=== PATIENT | male | born 1975 | race Caucasian/White ===

== ENCOUNTER 2016-11-29 04:25 | Emergency (ER) | payer SELFPAY ==
--- NOTE | 2016-11-29 05:21 | EDPHY ---
H & P Stated Complaint: blistering and soreness to bilateral feet Time Seen by Provider: 11/29/16 04:43 HPI/ROS: HPI The patient presents, brought in by ambulance for bilateral foot pain which has been present for the last several weeks. It is worse with walking and improved with rest. It is an aching pain which has been constant. As he is homeless and is visiting here from [place]. He has been doing a lot of walking. He has not had a fever, any numbness of his feet, any swelling of his feet. REVIEW OF SYSTEMS Constitutional: No fever, no chills. Eyes: No discharge. ENT: No sore throat. Cardiovascular: No chest pain, no palpitations. Respiratory: No cough, no shortness of breath. Gastrointestinal: No abdominal pain, no vomiting. Genitourinary: No hematuria. Musculoskeletal: No back pain. Skin: No rashes. Neurological: No headache. PMHx: Denies diabetes or hypertension Soc Hx: Homeless PHYSICAL General Appearance: Alert, no distress Eyes: Pupils equal and round no pallor or injection ENT, Mouth: Mucous membranes moist Respiratory: There are no retractions, lungs are clear to auscultation Cardiovascular: Regular rate and rhythm Gastrointestinal: Abdomen is soft and non-tender, no masses, bowel sounds normal Neurological: A&O, moves all extremities Skin: Warm and dry, no rashes Musculoskeletal: Neck is supple non tender Extremities: Both feet with multiple bullae, slightly erythematous, no necrosis or gangrene, no edema Psychiatric: Patient is oriented X 3, there is no agitation Source: Patient, EMS Exam Limitations: No limitations - Personal History Current Tetanus/Diphtheria Vaccine: No Current Tetanus Diphtheria and Acellular Pertussis (TDAP): No - Medical/Surgical History Hx Asthma: No Hx Chronic Respiratory Disease: No Hx Diabetes: No Hx Cardiac Disease: No Hx Renal Disease: No Hx Cirrhosis: No Hx Alcoholism: No Hx HIV/AIDS: No Hx Splenectomy or Spleen Trauma: No Other PMH: none - Social History Smoking Status: Heavy smoker Constitutional: Initial Vital Signs Temperature (C) 36.4 C 11/29/16 04:37 Heart Rate 99 11/29/16 04:37 Respiratory Rate 14 11/29/16 04:37 Blood Pressure 145/80 H 11/29/16 04:37 O2 Sat (%) 99 01/27/17 04:37 O2 Delivery Mode Room Air Medical Decision Making Differential Diagnosis: This is a 41-year-old homeless man with no significant past medical history who presents with several weeks of bilateral foot pain of associated with erythema and bullae. This appears to be trench foot without any evidence of gangrene on exam. I have also considered cellulitis, however he does not have any fever, warmth, edema to the area. There is no obvious abscess. Frostbite is also a consideration. I have discussed with him good hygiene of his feet, keeping them warm and dry, staying in the nursing home as much as possible. He is in agreement with this and will be discharged. Departure - Departure Disposition: Home, Routine, Self-Care Clinical Impression: Trench feet Condition: Good Instructions: Blister (ED) Additional Instructions: Please do your best to keep your feet clean and dry. This will help the blistering. Referrals: [facility] [Outside] - As per Instructions
[2016-11-29 05:35] VITALS: BP 138/70; PULSE 89; RESP 16; TEMP 97.7; O2SAT 98
== END 2016-11-29 05:35 | disposition home or self-care (01) ==
DX: T69.021A Immersion foot, right foot, initial encounter (principal); T69.022A Immersion foot, left foot, initial encounter; F17.200 Nicotine dependence, unspecified, uncomplicated; X31.XXXA Exposure to excessive natural cold, initial encounter

== ENCOUNTER 2017-11-14 13:46 | Emergency (ER) | payer SELFPAY ==
[2017-11-14 13:56] VITALS: BP 147/85; PULSE 108; RESP 15; TEMP 98.2; O2SAT 95
--- NOTE | 2017-11-14 14:03 | EDPHY ---
H & P Time Seen by Provider: 11/14/17 13:48 HPI/ROS: CHIEF COMPLAINT: "My head felt hot " HISTORY OF PRESENT ILLNESS: 42-year-old homeless male arrives via ambulance. States that he waved down an ambulance after he was walking and felt his head feel hot, not described her as a headache or experiencing any pain, no neurologic deficits, no vertigo, no tinnitus, no nausea or vomiting, seizure no loss of consciousness.. He then states that he felt the zippers on his clothing feeling hot and he therefore removed his clothing that contained zippers as now feels improvement. At no point has he experienced gait instability, headache, visual disturbance, suicidal or homicidal ideation, abdominal pain, nausea, vomiting. Denies illicit or alcohol use. Patient has previously been prescribed Abilify for "defiant disorder" however has been off this for several years. REVIEW OF SYSTEMS: A ten point review of systems was performed and is negative with the exception of the items mentioned in the HPI PAST MEDICAL & SURGICAL HISTORY: Self-reported history of "defiant disorder" SOCIAL HISTORY:Daily cigarette smoker. Homeless. PHYSICAL EXAM (Prior to examination, patient consented to physical exam, hands were washed and my usual and customary physical exam procedures followed) 1) GENERAL: Well-developed, well-nourished, alert and oriented. Appears to be in no acute distress. A and O x4 2) HEAD: Normocephalic, atraumatic 3) HEENT: Pupils equal, round, reactive to light bilaterally. Sclera anicteric. Nasopharynx, oropharynx, clear, no lesions. 4) NECK: Full range of motion, no meningeal signs. 5) LUNGS: Clear auscultation bilaterally, no wheezes, no rhonchi, no retractions. 6) HEART: Regular rate and rhythm, no murmur, no heave, no gallop. 7) ABDOMEN: No guarding, no rebound, no focal tenderness, negative McBurney's, negative Zhou's, negative Rovsing's, negative peritoneal sign, 8) MUSCULOSKELETAL: Moving all extremities, no focal areas of tenderness, no obvious trauma. No peripheral edema or discoloration. 9) BACK: No CVA tenderness, no midline vertebral tenderness, no fluctuance, no step-off, no obvious trauma, no visual or palpable abnormality. 10) SKIN: No rash, no petechiae. 11) Psychiatric: Patient is oriented X 3, there is no agitation. Calm and cooperative 12) NEURO: Awake, alert, and oriented to person, place and time. Answers questions appropriately. There were no obvious focal neurologic abnormalities. No cerebellar dysfunction. Cranial nerves 2 through to 12 intact. Normal steady gait. Upper and lower extremities bilaterally with strength 5 / 5, reflexes 2+. DIFFERENTIAL DIAGNOSIS: No particular include but limited to CVA, psychosis, subarachnoid hemorrhage, polysubstance abuse Smoking Status: Heavy smoker Constitutional: Initial Vital Signs Temperature (C) 36.8 C 11/14/17 13:54 Heart Rate 108 H 11/14/17 13:54 Respiratory Rate 15 11/14/17 13:54 Blood Pressure 147/85 H 11/14/17 13:54 O2 Sat (%) 95 11/14/17 13:54 O2 Delivery Mode Room Air MDM/Departure - [facility] ED Course/Re-evaluation: 2:07 p.m.: The patient has been re-evaluated with serial examinations. He describes nebulous symptoms which I think are less than likely consistent with acute intracranial or neurologic pathology such as subarachnoid hemorrhage, CVA. In addition he has no complaints either currently or previously of headache, neurologic deficits. He has a normal neurologic examination on exam. He is currently not taking any medications, denies suicidal homicidal ideation , exhibits no evidence of altered mentation, alert oriented person place time events. I believe him to have decision-making capacity at this time. I do not think he meets criteria for an M1 hold. I have offered to send him to mental health systems programmer is a as he has a prior history of mental health issues, has been off of medication for several years however he declines this. States that he would like to leave. He is welcome to return to emergency department for re- evaluation. Care of patient under supervision of secondary supervising physician Dr Joseph . - Depart Disposition: Home, Routine, Self-Care Clinical Impression: Sensation of feeling hot Condition: Good Instructions: [facility] Additional Instructions: Call 911 if you develop return of your symptoms, new symptoms, if you develop pain, if you develop headache or any other symptoms that concern you. Referrals: [facility],. [Primary Care Provider] - 1-2 days without fail [facility],. [Clinic] - As per Instructions
== END 2017-11-14 14:37 | disposition home or self-care (01) ==
LOC: EDUNIT#
DX: R20.8 Other disturbances of skin sensation (principal); F17.210 Nicotine dependence, cigarettes, uncomplicated

== ENCOUNTER 2017-11-14 19:00 | Emergency (ER) | payer OTHER ==
--- NOTE | 2017-11-14 19:13 | EDPHY ---
H & P Stated Complaint: "HEAD FEELS HOT WHEN TOUCHING ITEM" Source: Patient Exam Limitations: No limitations - Personal History Current Tetanus Diphtheria and Acellular Pertussis (TDAP): Unsure - Medical/Surgical History Hx Asthma: No Hx Chronic Respiratory Disease: No Hx Diabetes: No Hx Cardiac Disease: No Hx Renal Disease: No Hx Cirrhosis: No Hx Alcoholism: No Hx HIV/AIDS: No Hx Splenectomy or Spleen Trauma: No Other PMH: none - Social History Smoking Status: Heavy smoker Time Seen by Provider: 11/14/17 19:13 HPI/ROS: CHIEF COMPLAINT: Sensation that his head feels really hot HISTORY OF PRESENT ILLNESS: The patient presents the ED for 2nd time today with a sensation that his head feels hot. The patient was felt to have no significant localizing symptoms or fever during his initial ED evaluation. He was reassured and discharged home. The patient tells me he does carry a diagnosis of delusional disorder. He had previously been on Abilify for this condition. The patient denies any drug or alcohol use. The patient is quite preoccupied with the fact every time he touches metal his head becomes unbearably hot. The patient denies any chest pain shortness of breath. The patient reports he recently moved to [place] from [facility]. He is currently homeless. The patient did report a recent inpatient psychiatric hospitalization. He has a history of multiple somatic complaints as a reported component of his delusional disorder. REVIEW OF SYSTEMS: A comprehensive 10 point review of systems is otherwise negative aside from elements mentioned in the history of present illness. (Tripp Gayle) - Physical Exam Exam: General Appearance: Alert, no distress Eyes: Pupils equal and round no pallor or injection ENT, Mouth: Mucous membranes moist Respiratory: There are no retractions, lungs are clear to auscultation Cardiovascular: Regular rate and rhythm Gastrointestinal: Abdomen is soft and nontender, no masses, bowel sounds normal Neurological: A&O, normal motor function, normal sensory exam, normal cranial nerves Skin: Warm and dry, no rashes Musculoskeletal: Neck is supple nontender Extremities: symmetrical, full range of motion Psychiatric: Patient is delusional, denies suicidal or homicidal ideation, slightly agitated and anxious (Tripp Gayle) Constitutional: Initial Vital Signs Temperature (C) 36.4 C 11/14/17 19:07 Heart Rate 103 H 11/14/17 19:07 Respiratory Rate 18 11/14/17 19:07 Blood Pressure 128/103 H 11/14/17 19:07 O2 Sat (%) 94 11/14/17 19:07 O2 Delivery Mode Room Air Allergies/Adverse Reactions: No Known Allergies Allergy (Unverified 11/14/17 20:36) Medical Decision Making ED Course/Re-evaluation: The patient presents the ED with delusional thoughts. The patient does have a history of delusional disorder and is currently off psychiatric medications. The patient was amenable to 1 mg of IV Ativan. He is new to the [facility] and has not established any psychiatric care. The patient denies any acute medical complaints. He is noted to be neurologically intact without evidence of a toxidrome or vital sign abnormality. Patient has been medically cleared for psychiatric evaluation. The patient will be turned over to Dr. Jordan at shift change pending psychiatric disposition. (Tripp Gayle) 1:50 a.m.- The patient was assessed by the mental health worker. He does have fixed delusions. However, he does not have grave disability at this time, does not have any SI or HI. He does not meet criteria for psychiatric admission. The mental health worker Stuart discussed the case with Dr. Mchugh who recommends a dose of Zyprexa here, referral to the coordinated access program, outpatient resources including follow-up at [facility]. The patient will be discharged from the emergency department. (Rosa Jordan) - Data Points Laboratory Results: Laboratory Results 11/14/17 19:48 11/14/17 19:48 11/14/17 11/14/17 11/14/17 21:21 19:48 19:48 WBC 7.46 10^3/uL 10^3/uL (3.80-9.50) RBC 5.36 10^6/uL 10^6/uL (4.40-6.38) Hgb 16.1 g/dL g/dL (13.7-17.5) Hct 46.9 % % (40.0-51.0) MCV 87.5 fL fL (81.5-99.8) MCH 30.0 pg pg (27.9-34.1) MCHC 34.3 g/dL g/dL (32.4-36.7) RDW 14.2 % % (11.5-15.2) Plt Count 215 10^3/uL 10^3/uL (150-400) MPV 9.8 fL fL (8.7-11.7) Neut % (Auto) 54.9 % % (39.3-74.2) Lymph % (Auto) 34.2 % % (15.0-45.0) [place]nam % (Auto) 9.0 % % (4.5-13.0) Eos % (Auto) 1.3 % % (0.6-7.6) Baso % (Auto) 0.5 % % (0.3-1.7) Nucleat RBC Rel Count 0.0 % % (0.0-0.2) Absolute Neuts (auto) 4.09 10^3/uL 10^3/uL (1.70-6.50) Absolute Lymphs (auto) 2.55 10^3/uL 10^3/uL (1.00-3.00) Absolute Monos (auto) 0.67 10^3/uL 10^3/uL (0.30-0.80) Absolute Eos (auto) 0.10 10^3/uL 10^3/uL (0.03-0.40) Absolute Basos (auto) 0.04 10^3/uL 10^3/uL (0.02-0.10) Absolute Nucleated RBC 0.00 10^3/uL 10^3/uL (0-0.01) Immature Gran % 0.1 % % (0.0-1.1) Immature Gran # 0.01 10^3/uL 10^3/uL (0.00-0.10) Sodium 142 mEq/L mEq/L (135-145) Potassium 3.9 mEq/L mEq/L (3.5-5.2) Chloride 105 mEq/L mEq/L (97-110) Carbon Dioxide 24 mEq/l mEq/l (22-31) Anion Gap 13 mEq/L mEq/L (8-16) BUN 15 mg/dL mg/dL (7-23) Creatinine 0.9 mg/dL mg/dL (0.7-1.3) Estimated GFR > 60 Glucose 128 mg/dL H mg/dL (70-100) Calcium 9.8 mg/dL mg/dL (8.5-10.4) Urine Opiates Screen NEGATIVE (NEGATIVE) Urine Barbiturates NEGATIVE (NEGATIVE) Ur Phencyclidine Scrn NEGATIVE (NEGATIVE) Ur Amphetamine Screen NEGATIVE (NEGATIVE) U Benzodiazepines Scrn NEGATIVE (NEGATIVE) Urine Cocaine Screen NEGATIVE (NEGATIVE) U Marijuana (THC) Screen NEGATIVE (NEGATIVE) Ethyl Alcohol < 10 mg/dL mg/dL (0-10) Medications Given: Discontinued Medications Lorazepam (Ativan Injection) 1 mg IVP EDNOW ONE Stop: 11/14/17 19:30 Last Admin: 11/14/17 21:15 Dose: Not Given Departure - Departure Disposition: Home, Routine, Self-Care Clinical Impression: Delusional disorder, Homelessness Condition: Good Instructions: Psychotic Disorder (ED) Additional Instructions: Please follow-up with the [facility] and the coordinated entry program so that you can get into a skilled nursing and restarted on her medications. Referrals: [facility],. [Clinic] - As per Instructions
[2017-11-14] MEDS ORDERED: LORazepam 2 MG/ML INJ IVP ONE (19:29)
[2017-11-14 19:58] LABS: PLATELET COUNT 215 10^3/uL (150-400)
[2017-11-15] MEDS ORDERED: OLANZapine DISINTEGR 10 MG TAB PO ONE (01:48)
[2017-11-15 02:11] VITALS: BP 146/83; PULSE 75; RESP 17; TEMP 97.9; O2SAT 96
== END 2017-11-15 02:32 | disposition home or self-care (01) ==
DX: F22 Delusional disorders (principal); F17.200 Nicotine dependence, unspecified, uncomplicated; Z59.0 Homelessness
CPT/HCPCS: 80305; G0480